=== PATIENT | female | born 1950 | race African-American/Black ===

== ENCOUNTER 2020-10-14 16:50 | Inpatient (IN) ==
[2020-10-14] MEDS ORDERED: SODIUM CHLORIDE 0.9% 500 ML IV STA (20:34)
[2020-10-14 20:56] LABS: Basophils # 0.1 10*3/uL (0.0-0.2); Basophils % 0.4 % (0.0-0.8); Eosinophils # 0.4 10*3/uL (0.0-0.87); Eosinophils % 2.8 % (0.00-10.9); Hematocrit 26.6 VOL% (35.7-47.0); Hemoglobin 8.5 GM/DL (12.0-16.0); Immature Granulocytes % 0.6 %; Immature Granulocytes Absolute 0.08 #; Lymphocytes # 3.5 10*3/uL (1.4-4.0); Lymphocytes % 25.8 % (21.3-54.2); Mean Platelet Volume 9.7 FL (9.6-12.0); Monocytes % 6.7 % (1.7-12.7); Neutrophils % 63.7 % (38.7-73.9); Platelet Count 268 T/CUMM (130-400); Red Blood Count 2.89 MC/CUMM (3.8-5.5); Red Cell Distribution Width 13.2 % (9.3-17.3); White Blood Count 13.5 T/CUMM (4-12)
[2020-10-14] MEDS ORDERED: PANTOPRAZOLE 40 MG VIAL IV STA (21:02)
[2020-10-14 21:18] LABS: Albumin 2.4 G/DL (3.4-5.0); Bilirubin,Total 0.4 MG/DL (0.2-1.0); Calcium 8.2 MG/DL (8.5-10.1); Osmolality,Calculated 292.8 MOS/KG (273-304); Total Protein 7.6 G/DL (6.4-8.3)
[2020-10-14 21:19] LABS: Troponin I < 0.015 NG/ML (0.00-0.045)
[2020-10-14 21:44] LABS: PT Patient Result 11.2 SECS (9.8-11.9)
[2020-10-14] MEDS ORDERED: SODIUM CHLORIDE 0.9% 1,000 ML IV PRN (22:09)
[2020-10-14] MEDS ORDERED: PANTOPRAZOLE INJ 80 MG in SODIUM CHLORIDE 0.9% 100 ML IV ONE (22:30)
[2020-10-14] MEDS ORDERED: ONDANSETRON 4 MG/2 ML VIAL IV PRN (23:07)
[2020-10-14] MEDS ORDERED: ACETAMINOPHEN 325 MG TABLET PO PRN (23:07)
[2020-10-14] MEDS ORDERED: guaiFENesin/DM ER 600-30 MG TABLET PO PRN (23:07)
[2020-10-14] MEDS ORDERED: diphenhydrAMINE CAP 25 MG CAPSULE PO PRN (23:07)
[2020-10-14] MEDS ORDERED: DOCUSATE SODIUM 100 MG CAPSULE PO PRN (23:07)
[2020-10-14] MEDS ORDERED: ZALEPLON 5 MG CAPSULE PO PRN (23:07)
[2020-10-14] MEDS ORDERED: NICOTINE 21 MG/24 HR PATCH TRANSDERM PRN (23:07)
[2020-10-14] MEDS ORDERED: hydrALAZINE 20 MG/1 ML VIAL IV PRN (23:07)
[2020-10-14] MEDS ORDERED: GLUCAGON 1 MG VIAL IM PRN (23:07)
[2020-10-14] MEDS ORDERED: DEXTROSE 50% 25 GM/50 ML VIAL IV PRN (23:07)
[2020-10-15 00:13] LABS: Bacteria,Urine Occasional /HPF (Few); Bilirubin,Urine Negative (Negative); Blood, Urine Moderate mg/dL (Negative); Glucose,Urine (UA) 150 mg/dL (Negative); Ketones,Urine Negative (Negative); Mucus,Urine Occasional /LPF (Occasional); Nitrite,Urine Negative (Negative); Protein,Urine 100 MG/DL; RBC,Urine 15 /HPF (0-4); Squamous Epithelial Cell,Urine Occasional /HPF (0-10); Urine Appearance CLOUDY (Clear); Urine Color Yellow (Yellow); Urine Specific Gravity 1.012 (1.001-1.035); Urine Urobilinogen < 2.0 EU/DL (0.2-1.0); WBC,Urine 181 /HPF (0-6)
[2020-10-15] MEDS: SODIUM CHLORIDE 0.9% 1,000 ML IV SCH ×2 (03:42→11:55)
[2020-10-15] MEDS: PANTOPRAZOLE INJ 200 MG in SODIUM CHLORIDE 0.9% 250 ML IV SCH (03:49)
[2020-10-15 05:37] LABS: Basophils # 0.1 10*3/uL (0.0-0.2); Basophils % 0.4 % (0.0-0.8); Eosinophils # 0.4 10*3/uL (0.0-0.87); Eosinophils % 2.7 % (0.00-10.9); Hematocrit 28.3 VOL% (35.7-47.0); Hematocrit 28.4 VOL% (35.7-47.0); Hemoglobin 9.2 GM/DL (12.0-16.0); Immature Granulocytes % 0.5 %; Immature Granulocytes Absolute 0.07 #; Lymphocytes # 3.1 10*3/uL (1.4-4.0); Lymphocytes % 23.8 % (21.3-54.2); Mean Corpuscular HGB Conc 31.7 GM/DL (32-36); Mean Corpuscular Volume 92.5 FL (87-102); Monocytes % 6.4 % (1.7-12.7); Neutrophils % 66.2 % (38.7-73.9); Platelet Count 247 T/CUMM (130-400); Red Blood Count 3.07 MC/CUMM (3.8-5.5); Red Cell Distribution Width 13.6 % (9.3-17.3); White Blood Count 13.2 T/CUMM (4-12)
[2020-10-15 05:56] LABS: Calcium 8.2 MG/DL (8.5-10.1); Osmolality,Calculated 287.8 MOS/KG (273-304)
[2020-10-15] MEDS ORDERED: FUROSEMIDE 20 MG TABLET PO SCH (09:00)
[2020-10-15] MEDS: carvediloL 12.5 MG TABLET PO SCH ×2 (09:40→20:26)
[2020-10-15] MEDS: FAMOTIDINE 20 MG/2 ML VIAL IV SCH ×2 (09:40→20:27)
[2020-10-15] MEDS: GABAPENTIN 100 MG CAPSULE PO SCH (09:40)
[2020-10-15] MEDS: CARBIDOPA/LEVODOPA 25-100 MG TABLET PO SCH (09:41)
[2020-10-15] MEDS: INSULIN LISPRO 100 UNIT/ML SUBCUT SCH ×4 (10:25→20:27)
[2020-10-15] MEDS ORDERED: cefTRIAXone 1,000 MG in SYRINGE 1 EACH IV SCH (16:00)
[2020-10-15 16:04] LABS: Hematocrit 26.3 VOL% (35.7-47.0); Hemoglobin 8.4 GM/DL (12.0-16.0)
[2020-10-15] MEDS ORDERED: ATORVASTATIN 10 MG TABLET PO SCH (21:00)
[2020-10-16] MEDS: SODIUM CHLORIDE 0.9% 1,000 ML IV SCH ×2 (01:15→12:58)
[2020-10-16] MEDS: PANTOPRAZOLE INJ 200 MG in SODIUM CHLORIDE 0.9% 250 ML IV SCH (04:53)
[2020-10-16 06:01] LABS: Basophils % 0.4 % (0.0-0.8); Eosinophils # 0.3 10*3/uL (0.0-0.87); Eosinophils % 2.6 % (0.00-10.9); Hematocrit 26.3 VOL% (35.7-47.0); Hemoglobin 8.3 GM/DL (12.0-16.0); Immature Granulocytes % 0.4 %; Immature Granulocytes Absolute 0.04 #; Lymphocytes % 18.6 % (21.3-54.2); Mean Corpuscular HGB Conc 31.6 GM/DL (32-36); Mean Corpuscular Volume 92.9 FL (87-102); Mean Platelet Volume 10.1 FL (9.6-12.0); Monocytes % 6.2 % (1.7-12.7); Neutrophils % 71.8 % (38.7-73.9); Platelet Count 219 T/CUMM (130-400); Red Blood Count 2.83 MC/CUMM (3.8-5.5); Red Cell Distribution Width 13.7 % (9.3-17.3); White Blood Count 10.8 T/CUMM (4-12)
[2020-10-16 06:14] LABS: Alanine Aminotransferase < 6 U/L (13-56); Albumin 2.1 G/DL (3.4-5.0); Alkaline Phosphatase 105 U/L (45-117); Aspartate Amino Transferase 5 U/L (0-37); Blood Urea Nitrogen 36 MG/DL (7-18); Calcium 8.1 MG/DL (8.5-10.1); Estimated Glom Filtration Rate 20 ML/MIN; Glucose 122 MG/DL (74-106); Osmolality,Calculated 291.1 MOS/KG (273-304); Total Protein 6.4 G/DL (6.4-8.3)
[2020-10-16] MEDS: INSULIN LISPRO 100 UNIT/ML SUBCUT SCH ×2 (08:49→12:10)
[2020-10-16] MEDS ORDERED: amLODIPine 5 MG TABLET PO SCH (09:00)
[2020-10-16] MEDS: FAMOTIDINE 20 MG/2 ML VIAL IV SCH (09:50)
[2020-10-16] MEDS: GABAPENTIN 100 MG CAPSULE PO SCH (09:52)
[2020-10-16] MEDS: CARBIDOPA/LEVODOPA 25-100 MG TABLET PO SCH (09:52)
[2020-10-16] MEDS: carvediloL 12.5 MG TABLET PO SCH (09:52)
[2020-10-16 11:56] VITALS: BP 157/81
== END 2020-10-16 13:20 | disposition home or self-care (01) | DRG 378 ==
LOC: N.ED 16:50 → N.EDINP 23:07 → N.5E 23:36
PROVIDERS: ADMIT Internal Medicine; ATTEND Internal Medicine

== ENCOUNTER 2020-10-17 07:39 | Inpatient (IN) ==
[2020-10-17] MEDS ORDERED: SODIUM CHLORIDE 0.9% 1,000 ML IV STA (08:07)
[2020-10-17] MEDS ORDERED: PANTOPRAZOLE 40 MG VIAL IV STA (08:07)
[2020-10-17 08:24] LABS: Basophils # 0.1 10*3/uL (0.0-0.2); Basophils % 0.5 % (0.0-0.8); Eosinophils # 0.3 10*3/uL (0.0-0.87); Eosinophils % 2.7 % (0.00-10.9); Hematocrit 26.4 VOL% (35.7-47.0); Hemoglobin 8.6 GM/DL (12.0-16.0); Immature Granulocytes % 0.4 %; Immature Granulocytes Absolute 0.05 #; Lymphocytes # 2.1 10*3/uL (1.4-4.0); Lymphocytes % 18.5 % (21.3-54.2); Mean Corpuscular HGB Conc 32.6 GM/DL (32-36); Mean Corpuscular Volume 91.3 FL (87-102); Mean Platelet Volume 9.7 FL (9.6-12.0); Monocytes % 5.7 % (1.7-12.7); Neutrophils % 72.2 % (38.7-73.9); Platelet Count 254 T/CUMM (130-400); Red Blood Count 2.89 MC/CUMM (3.8-5.5); Red Cell Distribution Width 13.7 % (9.3-17.3); White Blood Count 11.4 T/CUMM (4-12)
[2020-10-17 08:37] LABS: PT Patient Result 11.1 SECS (9.8-11.9); Partial Thromboplastin Time 29.8 SECS (23.9-33.8)
[2020-10-17 08:45] LABS: Alanine Aminotransferase 10 U/L (13-56); Albumin 2.5 G/DL (3.4-5.0); Alkaline Phosphatase 130 U/L (45-117); Aspartate Amino Transferase 15 U/L (0-37); Bilirubin,Total < 0.39 MG/DL (0.2-1.0); Blood Urea Nitrogen 32 MG/DL (7-18); Calcium 7.8 MG/DL (8.5-10.1); Estimated Glom Filtration Rate 21 ML/MIN; Glucose 208 MG/DL (74-106); Osmolality,Calculated 287.7 MOS/KG (273-304); Total Protein 6.7 G/DL (6.4-8.3)
[2020-10-17] MEDS ORDERED: ACETAMINOPHEN 325 MG TABLET PO PRN (10:10)
[2020-10-17] MEDS ORDERED: DEXTROSE 50% 25 GM/50 ML VIAL IV PRN (10:10)
[2020-10-17] MEDS ORDERED: ONDANSETRON 4 MG/2 ML VIAL IV PRN (10:10)
[2020-10-17] MEDS ORDERED: GLUCAGON 1 MG VIAL IM PRN (10:10)
[2020-10-17] MEDS: SODIUM CHLORIDE 0.9% 1,000 ML IV SCH (11:00)
[2020-10-17 15:04] LABS: Hematocrit 25.7 VOL% (35.7-47.0); Hemoglobin 8.1 GM/DL (12.0-16.0)
[2020-10-17 21:27] LABS: Hematocrit 23.6 VOL% (35.7-47.0); Hemoglobin 7.7 GM/DL (12.0-16.0)
[2020-10-17] MEDS: PANTOPRAZOLE 40 MG VIAL IV SCH (21:31)
[2020-10-17] MEDS: carvediloL 12.5 MG TABLET PO SCH (21:31)
[2020-10-17] MEDS: CARBIDOPA/LEVODOPA 25-100 MG TABLET PO SCH (21:31)
[2020-10-17] MEDS: ATORVASTATIN 10 MG TABLET PO SCH (21:31)
[2020-10-18] MEDS: SODIUM CHLORIDE 0.9% 1,000 ML IV SCH (02:26)
[2020-10-18 02:28] LABS: Hematocrit 23.5 VOL% (35.7-47.0); Hemoglobin 7.5 GM/DL (12.0-16.0)
[2020-10-18 02:29] LABS: Basophils % 0.3 % (0.0-0.8); Eosinophils # 0.3 10*3/uL (0.0-0.87); Hematocrit 23.1 VOL% (35.7-47.0); Hemoglobin 7.4 GM/DL (12.0-16.0); Immature Granulocytes % 0.7 %; Immature Granulocytes Absolute 0.07 #; Lymphocytes # 2.4 10*3/uL (1.4-4.0); Lymphocytes % 22.7 % (21.3-54.2); Mean Platelet Volume 9.3 FL (9.6-12.0); Monocytes % 5.9 % (1.7-12.7); Neutrophils % 67.4 % (38.7-73.9); Platelet Count 206 T/CUMM (130-400); Red Blood Count 2.51 MC/CUMM (3.8-5.5); Red Cell Distribution Width 13.5 % (9.3-17.3); White Blood Count 10.6 T/CUMM (4-12)
[2020-10-18 02:52] LABS: Calcium 7.6 MG/DL (8.5-10.1)
[2020-10-18 02:58] LABS: Osmolality,Calculated 288.3 MOS/KG (273-304)
[2020-10-18] MEDS ORDERED: POTASSIUM CHLORIDE RIDER 10 MEQ in PREMIX 1 EACH IV ONE (04:13)
[2020-10-18] MEDS ORDERED: SODIUM CHLORIDE 0.9% 1,000 ML IV PRN (07:32)
[2020-10-18 08:24] LABS: Hematocrit 22.5 VOL% (35.7-47.0); Hemoglobin 7.4 GM/DL (12.0-16.0)
[2020-10-18] MEDS: GABAPENTIN 100 MG CAPSULE PO SCH (08:58)
[2020-10-18] MEDS: POTASSIUM CHLORIDE 20 MEQ TABLET PO PRN ×3 (08:59→21:22)
[2020-10-18] MEDS: amLODIPine 5 MG TABLET PO SCH (08:59)
[2020-10-18] MEDS: CARBIDOPA/LEVODOPA 25-100 MG TABLET PO SCH ×2 (08:59→21:22)
[2020-10-18] MEDS: carvediloL 12.5 MG TABLET PO SCH ×2 (08:59→21:22)
[2020-10-18] MEDS ORDERED: PANTOPRAZOLE 40 MG TABLET PO SCH (09:00)
[2020-10-18] MEDS: PANTOPRAZOLE 40 MG VIAL IV SCH ×2 (09:02→21:22)
[2020-10-18 14:29] LABS: Hematocrit 23.6 VOL% (35.7-47.0); Hemoglobin 7.5 GM/DL (12.0-16.0)
[2020-10-18] MEDS: INSULIN LISPRO 100 UNIT/ML SUBCUT SCH ×2 (17:12→21:25)
[2020-10-18 19:36] LABS: Hematocrit 23.5 VOL% (35.7-47.0); Hemoglobin 7.5 GM/DL (12.0-16.0)
[2020-10-18] MEDS: ATORVASTATIN 10 MG TABLET PO SCH (21:22)
[2020-10-19 01:53] LABS: Hematocrit 22.5 VOL% (35.7-47.0); Hemoglobin 7.1 GM/DL (12.0-16.0)
[2020-10-19 02:30] LABS: Calcium 8.2 MG/DL (8.5-10.1); Osmolality,Calculated 287.1 MOS/KG (273-304)
[2020-10-19 05:36] LABS: Basophils % 0.4 % (0.0-0.8); Eosinophils # 0.3 10*3/uL (0.0-0.87); Eosinophils % 3.3 % (0.00-10.9); Hematocrit 22.4 VOL% (35.7-47.0); Hemoglobin 7.1 GM/DL (12.0-16.0); Immature Granulocytes % 0.5 %; Immature Granulocytes Absolute 0.05 #; Lymphocytes # 2.5 10*3/uL (1.4-4.0); Lymphocytes % 23.5 % (21.3-54.2); Mean Corpuscular HGB Conc 31.7 GM/DL (32-36); Mean Corpuscular Volume 92.9 FL (87-102); Mean Platelet Volume 9.9 FL (9.6-12.0); Monocytes % 6.7 % (1.7-12.7); Neutrophils % 65.6 % (38.7-73.9); Platelet Count 208 T/CUMM (130-400); Red Blood Count 2.41 MC/CUMM (3.8-5.5); Red Cell Distribution Width 13.4 % (9.3-17.3); White Blood Count 10.4 T/CUMM (4-12)
[2020-10-19] MEDS ORDERED: MAGNESIUM SULF RIDER 4 GM in PREMIX 1 EACH IV PRN (07:02)
[2020-10-19] MEDS ORDERED: MAGNESIUM SULF RIDER 2 GM in PREMIX 1 EACH IV PRN (07:02)
[2020-10-19] MEDS ORDERED: SODIUM CHLORIDE 0.9% 1,000 ML IV PRN (07:02)
[2020-10-19] MEDS ORDERED: ERGOCALCIFEROL 50,000 UNIT CAPSULE PO SCH (08:00)
[2020-10-19 08:13] LABS: Hematocrit 25.7 VOL% (35.7-47.0); Hemoglobin 8.2 GM/DL (12.0-16.0)
[2020-10-19] MEDS: carvediloL 12.5 MG TABLET PO SCH ×2 (09:18→21:46)
[2020-10-19] MEDS: amLODIPine 5 MG TABLET PO SCH (09:18)
[2020-10-19] MEDS: GABAPENTIN 100 MG CAPSULE PO SCH (09:18)
[2020-10-19] MEDS: CARBIDOPA/LEVODOPA 25-100 MG TABLET PO SCH ×2 (10:16→21:46)
[2020-10-19] MEDS: INSULIN LISPRO 100 UNIT/ML SUBCUT SCH ×5 (10:17→21:45)
[2020-10-19] MEDS: PANTOPRAZOLE 40 MG VIAL IV SCH ×2 (17:17→21:46)
[2020-10-19] MEDS: ATORVASTATIN 10 MG TABLET PO SCH (21:46)
[2020-10-20 05:27] LABS: Basophils # 0.1 10*3/uL (0.0-0.2); Basophils % 0.4 % (0.0-0.8); Eosinophils # 0.3 10*3/uL (0.0-0.87); Eosinophils % 2.3 % (0.00-10.9); Hematocrit 23.9 VOL% (35.7-47.0); Hemoglobin 7.5 GM/DL (12.0-16.0); Immature Granulocytes % 0.6 %; Immature Granulocytes Absolute 0.08 #; Lymphocytes # 2.4 10*3/uL (1.4-4.0); Lymphocytes % 19.5 % (21.3-54.2); Mean Corpuscular HGB Conc 31.4 GM/DL (32-36); Mean Corpuscular Volume 92.3 FL (87-102); Mean Platelet Volume 9.9 FL (9.6-12.0); Neutrophils % 72.2 % (38.7-73.9); Platelet Count 250 T/CUMM (130-400); Red Blood Count 2.59 MC/CUMM (3.8-5.5); Red Cell Distribution Width 13.5 % (9.3-17.3); White Blood Count 12.4 T/CUMM (4-12)
[2020-10-20 05:42] LABS: Calcium 8.1 MG/DL (8.5-10.1); Osmolality,Calculated 285.5 MOS/KG (273-304)
[2020-10-20] MEDS ORDERED: MAGNESIUM SULF RIDER 2 GM in PREMIX 1 EACH IV ONE (07:30)
[2020-10-20] MEDS: CARBIDOPA/LEVODOPA 25-100 MG TABLET PO SCH ×2 (09:58→21:02)
[2020-10-20] MEDS: INSULIN LISPRO 100 UNIT/ML SUBCUT SCH ×4 (09:58→21:02)
[2020-10-20] MEDS: GABAPENTIN 100 MG CAPSULE PO SCH (09:59)
[2020-10-20] MEDS: PANTOPRAZOLE 40 MG VIAL IV SCH ×2 (10:00→21:02)
[2020-10-20] MEDS: carvediloL 12.5 MG TABLET PO SCH ×2 (10:00→21:02)
[2020-10-20] MEDS ORDERED: FLUCONAZOLE 150 MG TABLET PO ONE (10:00)
[2020-10-20] MEDS: amLODIPine 5 MG TABLET PO SCH ×2 (10:08→10:17)
[2020-10-20] MEDS: ATORVASTATIN 10 MG TABLET PO SCH (21:02)
[2020-10-21 06:47] LABS: Basophils % 0.2 % (0.0-0.8); Eosinophils # 0.3 10*3/uL (0.0-0.87); Hematocrit 24.2 VOL% (35.7-47.0); Hemoglobin 7.8 GM/DL (12.0-16.0); Immature Granulocytes % 0.4 %; Immature Granulocytes Absolute 0.06 #; Lymphocytes % 13.8 % (21.3-54.2); Mean Corpuscular HGB Conc 32.2 GM/DL (32-36); Mean Corpuscular Volume 92.4 FL (87-102); Mean Platelet Volume 10.1 FL (9.6-12.0); Monocytes % 5.6 % (1.7-12.7); Platelet Count 275 T/CUMM (130-400); Red Blood Count 2.62 MC/CUMM (3.8-5.5); Red Cell Distribution Width 13.6 % (9.3-17.3); White Blood Count 14.5 T/CUMM (4-12)
[2020-10-21 08:36] VITALS: BP 146/90
[2020-10-21] MEDS: INSULIN LISPRO 100 UNIT/ML SUBCUT SCH ×2 (09:49→12:34)
[2020-10-21] MEDS: PANTOPRAZOLE 40 MG VIAL IV SCH (09:50)
[2020-10-21] MEDS: carvediloL 12.5 MG TABLET PO SCH (09:51)
[2020-10-21] MEDS: GABAPENTIN 100 MG CAPSULE PO SCH (09:51)
[2020-10-21] MEDS: CARBIDOPA/LEVODOPA 25-100 MG TABLET PO SCH (09:51)
[2020-10-21] MEDS: amLODIPine 5 MG TABLET PO SCH (09:51)
== END 2020-10-21 12:43 | disposition home or self-care (01) | DRG 378 ==
LOC: N.EDINP 07:39 → N.ED 07:39 → N.EDINP 13:21 → N.TELES 13:27
PROVIDERS: ADMIT Internal Medicine; ATTEND Internal Medicine